=== PATIENT | female | born 1990 | race Two or more races ===

== ENCOUNTER 2024-04-11 03:35 | Observation (INO) | payer BC, MEDICAID, SELFPAY ==
[2024-04-11] VITALS (10 sets, daily range): BP systolic 107–114; BP diastolic 56–64; PULSE 72–83; RESP 17–99; TEMP 36.8; O2SAT 98–99; BMI 33.8
[2024-04-11 04:29] LABS: ROM Kit Lot # 57805053; ROM Swab Mixed By: CHULK; Rupture of Fetal Membranes Negative (Negative); Swb Mxed in Solvent 1 min? Yes
== END 2024-04-11 05:00 | disposition home or self-care (01) ==
PROVIDERS: Admitting Provider Obstetrics & Gynecology; PCP Family Medicine; Visit Provider Obstetrics & Gynecology
DX: O26.893 Other specified pregnancy related conditions, third trimester (principal); Z3A.31 31 weeks gestation of pregnancy; R10.31 Right lower quadrant pain
CPT/HCPCS: 59899; 84112

== ENCOUNTER 2024-06-02 14:11 | Observation (INO) | payer BC, MEDICAID, SELFPAY ==
[2024-06-02] VITALS (24 sets, daily range): BP systolic 83–91; BP diastolic 52–66; PULSE 65–79; RESP 16; TEMP 36.5; O2SAT 97–100; BMI 34.1
--- NOTE | 2024-06-02 15:13 | XR_ITS ---
Examination: Complete OB ultrasound greater than 14 weeks Date and time of exam: June 02, 2024 1525 hours INDICATIONS: Ruptured membranes, leaking amniotic fluid today, pelvic contractions Findings: Viable intrauterine single fetus with single amniotic sac presentation cephalic Cardiac motion 152 BPM Placenta fundal grade 3 no abruption Umbilical cord insertion seen Amniotic fluid index 7.9 cm spine maternal right Cervix 4.1 cm Ovaries obscured by bowel gas. Composite estimated gestational age based on BPD, head circumference, abdominal circumference, femur length is 38 weeks 2 days Estimated weight 3450 g. Survey of intracranial anatomy, spinal anatomy, abdominal anatomy, four-chamber heart performed with no abnormalities identified. Impression: Viable intrauterine gestation cephalic presentation Amniotic fluid index 7.9 cm Estimated weight 3450 g.
[2024-06-02 15:37] LABS: ROM Kit Lot # 57809118
[2024-06-02 15:38] LABS: ROM Swab Mixed By: WORMR; Rupture of Fetal Membranes Negative (Negative); Swb Mxed in Solvent 1 min? Yes
== END 2024-06-02 17:10 | disposition home or self-care (01) ==
PROVIDERS: Admitting Provider Specialist; Visit Provider Specialist
DX: Z34.83 Encounter for supervision of other normal pregnancy, third trimester (principal); Z3A.39 39 weeks gestation of pregnancy
CPT/HCPCS: 59899; 76805; 84112

== ENCOUNTER 2024-06-06 13:05 | Observation (INO) | payer BC, MEDICAID, SELFPAY ==
[2024-06-06] VITALS (7 sets, daily range): BP systolic 107; BP diastolic 58; PULSE 76–101; RESP 18; TEMP 37; O2SAT 98–100; BMI 34.2
--- NOTE | 2024-06-06 16:14 | PC.NURSE ---
Patient discharged home with spouse. NST reactive. Vitals WNL. Discharge education reviewed with patient including reasons to return and precautions. Patient verbalizes understand, all questions answered and encouraged.
== END 2024-06-06 16:06 | disposition home or self-care (01) ==
PROVIDERS: Admitting Provider Specialist; Visit Provider Specialist
DX: O47.1 False labor at or after 37 completed weeks of gestation (principal); Z3A.39 39 weeks gestation of pregnancy
CPT/HCPCS: 59025; 59899

== ENCOUNTER 2024-06-10 14:18 | Observation (INO) | payer BC, MEDICAID, SELFPAY ==
[2024-06-10 14:54] VITALS: BP 94/55; PULSE 99; RESP 17; RESP 99; TEMP 36.7; BMI 34.2
== END 2024-06-10 16:00 | disposition home or self-care (01) ==
PROVIDERS: Admitting Provider Specialist; Visit Provider Specialist
DX: Z34.83 Encounter for supervision of other normal pregnancy, third trimester (principal); Z3A.40 40 weeks gestation of pregnancy
CPT/HCPCS: 59899

== ENCOUNTER 2024-06-18 08:51 | Inpatient (IN) | payer BC, MEDICAID, SELFPAY ==
[2024-06-18] VITALS (179 sets, daily range): BP systolic 96–151; BP diastolic 51–82; PULSE 53–118; RESP 18–98; TEMP 36.6–37.1; O2SAT 81–100; BMI 34.0
[2024-06-18 09:39] LABS: ROM Kit Lot # 578010271
[2024-06-18 09:40] LABS: ROM Swab Mixed By: AYONJ; Rupture of Fetal Membranes Negative (Negative); Swb Mxed in Solvent 1 min? Yes
--- NOTE | 2024-06-18 10:59 | PD.LDHP ---
Documentation for date of: 06/18/24 OB Labor/Induct. HPI History of Present Illness History of Abortions: Spontaneous and Elective: 0 Comments: DATE OF ADMISSION: 06/18/2024 HISTORY OF PRESENT ILLNESS: This is a 34-year-old 4, para 3-0-0-3 with a due date of 06/09 with an intrauterine at 41 weeks 2 days who presents to labor delivery complaining of contractions and per RN in triage the patient is noted to be 3 cm. The patient reports that she thinks she is leaking fluid, but she is not sure. She denies any bleeding. She reports normal movements. Her care was complicated by a chlamydia cervicitis in the first trimester, which was treated. Subsequent test of cure for chlamydia was negative. She had a chlamydia and gonorrhea test on 05/16, which was negative. She was treated for yeast on 05/16 and her group B strep vaginal rectal swab was negative on 05/16. An ultrasound on 05/16 revealed estimated weight of 2634 g consistent with growth at the 22nd percentile. Her amniosure today is negative. ALLERGIES: NO KNOWN DRUG ALLERGIES. MEDICATIONS: multivitamin 1 p.o. daily. SOCIAL HISTORY: She is . She denies any alcohol, drug use or smoking. PAST MEDICAL HISTORY: Chlamydia cervicitis. Yeast vaginitis. Suspected endometriosis. 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 Pap smear shows low-grade squamous intraepithelial lesion. Iron deficiency anemia. FAMILY HISTORY: Mother hypertension. OBSTETRIC HISTORY: 2017, 40 week. Normal vaginal delivery 6 pounds 7 ounce female. No complications. 12/2019, 40 week. Normal vaginal delivery 7.3 ounce female. No complications. 07/2021, 40 week. Normal vaginal delivery 8 pound 5 ounce male. No complications. PAST SURGICAL HISTORY: Colonoscopy 09/29/2023. REVIEW OF SYSTEMS: She denies any chest pain, palpitations, cough, fever, shortness of breath, or lower extremity pain. She denies any headache, change in vision or right upper quadrant pain. PHYSICAL EXAMINATION: VITAL SIGNS: Blood pressure is 122/80, heart rate 88, respirations 18, temperature 98.2. HEENT: Oropharynx and sclerae are clear. LUNGS: Clear to auscultation bilaterally. HEART: Regular rate and rhythm. ABDOMEN: Gravid consistent with estimated weight, 8.0 pounds. PELVIC: See RN notes. Avendano score 10. EXTREMITIES: Nontender. SKIN: No gross rashes or lesions. NEUROLOGIC: No focal deficits. ASSESSMENT AND PLAN: Intrauterine at 41w2d. Induction of Labor with Pitocin. Anticipate spontaneous vaginal delivery. Informed consent was obtained. The patient made aware of the risks, complications, alternatives, and benefits of operative vaginal delivery and delivery and agrees with these modes of delivery if indicated. Meds Home Medications and Allergies Home Medications ?Medication ?Instructions ?Recorded ?Confirmed ?Type No Known Home Medications 04/11/24 06/02/24 History Allergies Allergy/AdvReac Type Severity Reaction Status Date / Time No Known Allergies Allergy Unknown Verified 06/02/24 15:26 OB Exam Physical Exam Vital signs: Temp Pulse Resp BP 97.8 F 68 18 96/51 L 06/18/24 08:51 06/18/24 10:48 06/18/24 08:51 06/18/24 10:48
[2024-06-18] MEDS: hydrOXYzine HCL 25 MG TABLET 50 MG PO (11:31)
[2024-06-18] MEDS: RINGERS LACTATED 1000 ML 1,000 ML 999 ML IV (12:20)
[2024-06-18] MEDS: RINGERS LACTATED 1000 ML 1,000 ML 100 ML IV (13:03)
[2024-06-18 13:04] LABS: Basophils % (Auto) 0 % (0-2.5); Eosinophils % (Auto) 0 % (0-10); Hematocrit 39.8 % (36.0-46.0); Hemoglobin 13.7 g/dL (12.0-16.0); Immature Granulocytes % (Auto) 1 % (0-0); Lymphocytes # (Auto) 1.6 Thou/mm3 (1.0-4.8); Lymphocytes % (Auto) 18 % (10-50); Mean Corpuscular HGB Conc 34.4 g/dl (31.0-37.0); Mean Corpuscular Hemoglobin 30.9 pg (25.0-35.0); Mean Corpuscular Volume 90 fL (80-100); Monocytes # (Auto) 0.4 Thou/mm3 (0.0-0.8); Monocytes % (Auto) 5 % (0-12); Neutrophils # (Auto) 6.8 Thou/mm3 (1.8-7.7); Neutrophils % (Auto) 76 % (37-80); Nucleated Red Blood Cell % 0 /100 WBC (0); Platelet Count 150 Thou/mm3 (140-440); RDW Standard Deviation 46.6 fL (36.4-46.3); Red Blood Count 4.43 Miln/mm3 (4.00-5.20)
[2024-06-18 13:09] LABS: Amphetamine/Metham Scrn,Ur OB Negative (Negative); Benzoylecgonine Screen, Ur OB Negative (Negative); Opiate Screen,Urine OB Negative (Negative); THC Screen,Urine OB Negative (Negative)
[2024-06-18 13:33] LABS: Syphilis Nonreactive (Nonreactive)
[2024-06-18] MEDS: OXYTOCIN in NS 30 units 30 UNIT/500 ML BAG IV (16:50)
[2024-06-18] MEDS: OXYTOCIN in NS 20 units 20 UNIT/1,000 ML BAG 125 UNIT IV (21:15)
--- NOTE | 2024-06-18 22:00 | PD.LDDELS ---
Data ([facility]) Data Hx Section: No : 4 Para: 3 Term: 3 : 0 : 0 Delivery Data ([facility]) Labor Data Induction: Yes ROM Date: 06/18/24 ROM Time: 20:50 Rupture Type: SROM Amniotic Fluid: Clear Delivery Data EDC: 06/09/24 EDC calculated by:: LMP/early US confirmation Labor Onset Stage 1 Date: 06/18/24 Labor Onset Stage 1 Time: 14:28 Labor Onset Stage 2 Date: 06/18/24 Labor Onset Stage 2 Time: 20:55 Delivery Date: 06/18/24 Delivery Time: 21:06 Gestational age (weeks): 41 Gestational age (days): 2 Placenta Delivery Date: 06/18/24 Placenta Delivery Time: 21:15 Delivered by: Baron Cabrera Delivery nurse: Amaris Parks Other staff at delivery: Nurse Other staff at delivery: Nursery Nurse Other staff at delivery: Other staff at delivery: Kathia Hurtado Other staff at delivery: Vanessa Barron Other staff at delivery: hermleindo lance Other staff at delivery: vy payne Delivery Method Delivery: Vaginal Delivery Type: Spontaneous Presentation: Vertex Position: OA Anesthesia Type Primary Anesthesia: Epidural Secondary Anesthesia: Epidural Placenta Placenta Delivery: Spontaneous Placenta Cultures Obtained: No Placenta Sent for Examination: No Cord Sample: Cord Blood Obtained Lacerations #1: Perineal: 2nd degree Perineal repair Sutures used for repair: 3.0 Chromic EBL Estimated blood loss (ml): 200 Umbilical Cord Nuchal Cord: x1 Body Cord: None Additional Procedures None Complications Complications: None Data ([facility]) [place] Data Gender: Male Infant Weight Grams: 3660 1 Minute Total: 8 5 Minute Total: 9
[2024-06-18] MEDS: BENZO/LANO/ALOE (Dermoplast) 60 GM CAN 1 SPRAY TOP (22:45)
[2024-06-18] MEDS: IBUPROFEN TAB 400 MG TABLET 800 MG PO (23:48)
[2024-06-19 04:00] VITALS: BP 101/64; PULSE 66; RESP 17; TEMP 36.9; O2SAT 97
[2024-06-19] MEDS: ACETAMINOPHEN 325 MG TABLET 650 MG PO ×2 (05:06→19:08)
[2024-06-19 06:16] LABS: Basophils % (Auto) 0 % (0-2.5); Eosinophils % (Auto) 0 % (0-10); Hematocrit 31.5 % (36.0-46.0); Hemoglobin 10.8 g/dL (12.0-16.0); Immature Granulocytes % (Auto) 1 % (0-0); Immature Granulocytes Auto 0.09 Thou/mm3 (0.00-0.00); Lymphocytes # (Auto) 2.6 Thou/mm3 (1.0-4.8); Lymphocytes % (Auto) 23 % (10-50); Mean Corpuscular HGB Conc 34.3 g/dl (31.0-37.0); Mean Corpuscular Hemoglobin 31.4 pg (25.0-35.0); Mean Corpuscular Volume 92 fL (80-100); Monocytes # (Auto) 0.7 Thou/mm3 (0.0-0.8); Monocytes % (Auto) 6 % (0-12); Neutrophils # (Auto) 7.8 Thou/mm3 (1.8-7.7); Neutrophils % (Auto) 70 % (37-80); Nucleated Red Blood Cell % 0 /100 WBC (0); Platelet Count 120 Thou/mm3 (140-440); RDW Standard Deviation 47.8 fL (36.4-46.3); Red Blood Count 3.44 Miln/mm3 (4.00-5.20); White Blood Count 11.2 Thou/mm3 (3.6-11.0)
[2024-06-19 08:12] VITALS: BP 100/67; PULSE 60; RESP 18; TEMP 36.5; O2SAT 97
--- NOTE | 2024-06-19 08:24 | ESDS_ITS ---
DS: Providers Provider Date of admission: 06/18/24 10:57 Primary care physician: Physician No Primary/Family Admitting Provider: Baron Cabrera MD Attending Provider on Admission: Baron Cabrera MD Consults: 06/18/24 22:52 Referral Routine Comment: Attending Provider on DC: Baron Cabrera MD Discharging Provider: Baron Cabrera MD DS: Diagnosis Problem List Completed Was Problem List Reviewed/Reconciled?: Yes Summary/Hosp Course Time Spent with Patient Time attestation: Total time spent providing and/or coordinating discharge services: Exam Vital Signs Temp Pulse Resp BP Pulse Ox O2 Del Method 98.5 F 66 17 101/64 97 Room Air 06/19/24 04:00 06/19/24 04:00 06/19/24 04:00 06/19/24 04:00 06/19/24 04:00 06/19/24 04:00 Discharge Plan Plan Patient Disposition: HOME (Self Care) Patient condition on transfer: Stable Prescriptions/Referrals Prescriptions/Med Rec: New ibuprofen 600 mg tablet 600 mg PO Q6H PRN (Reason: pain) Qty: 30 0RF Continued ferrous sulfate 325 mg (65 mg iron) tablet,delayed release (DR/EC) 325 mg PO QDAY Patient Comments: TAKE 1 TABLET BY MOUTH EVERY OTHER DAY FOR 60 DAYS Classic 28 mg iron- 800 mcg tablet 1 tab PO QDAY Discontinued metronidazole 500 mg tablet 500 mg PO BID Patient Comments: TAKE 1 TABLET BY MOUTH TWICE A DAY DO NOT DRINK ALCOHOL WHILE ON THIS MEDICATION Referrals: No Primary/Family,Physician [Primary Care Provider] - Patient/Caregiver Discharge Instructions Discharge Activity: activity as tolerated Other Discharge Activity Instructions:: Follow up office 6 weeks. Education Materials: After a Vaginal , Breast Care After , : Caring for Yourself Print Language: Serbian Stand Alone Forms: Kate Award Info., Patient Portal Info Letter Discharge Order Discharge Orders: Discharge (Routine); Ordered 06/19/24 Ordered By: Baron Cabrera Planned Discharge Date 06/20/24
--- NOTE | 2024-06-19 10:05 | ESPR_ITS ---
RE: LUCIE CASTELLANOS : 1990 DATE OF SERVICE: 06/19/2024 SUBJECTIVE: day #1, the patient denies any problem or complaint. She is voiding. She is ambulating. She is tolerating diet. She is passing flatus. She denies any excessive vaginal bleeding. She denies any dizziness or lightheadedness. She denies any chest pain, palpitations, shortness of breath or lower extremity pain. She denies any depression or anxiety. OBJECTIVE: Vital Signs: Blood pressure 101/64, heart rate 66, respirations 17, temperature is 98.5, pulse oximetry is 97% on room air. Lungs: Clear to auscultation bilaterally. Heart: Regular rate and rhythm. Abdomen: Fundus is firm, nontender. Extremities: Nontender. LABORATORY DATA: Hemoglobin pre-delivery is 13.7, post delivery is 10.8. ASSESSMENT: 1. day #1 status post spontaneous vaginal delivery. 2. Anemia, but hemodynamically stable. PLAN: Discharge home when baby is cleared. Discharge instructions given. Follow up in the office in 6 weeks. DT: 08:18:10 TT: 10:03:00 Ref: [id number] - TID: [id number]
[2024-06-19 12:41] VITALS: BP 107/65; PULSE 74; RESP 20; TEMP 36.7; O2SAT 97
[2024-06-19] MEDS: IBUPROFEN TAB 400 MG TABLET 800 MG PO (12:49)
[2024-06-19 17:00] VITALS: BP 106/71; PULSE 66; RESP 16; TEMP 36.4; O2SAT 99
--- NOTE | 2024-06-19 19:05 | PC.NURSE ---
RN RECEIVED IN REPORT PATIENT WAS LATE TO CARE AT 26 WEEKS RN REVIEWED PATIENTS CHART AND SEEN SHE WAS A TRANSFER OF CARE AT 26 WEEKS PATIENT WAS SEEN IN FIRST TRIMESTER ( 7 weeks ) per patient report and documentation. no need for social service referral clearance upon discharge this evening
[2024-06-19 20:15] VITALS: BP 110/70; PULSE 69; RESP 18; TEMP 36.5; O2SAT 97
== END 2024-06-19 22:50 | disposition home or self-care (01) | DRG 807 ==
LOC: S4SX 11:25 → S4NX 06-19 00:21
PROVIDERS: Admitting Provider Specialist; Visit Provider Specialist
DX: O48.0 Post-term pregnancy (principal); Z37.0 Single live birth; Z3A.41 41 weeks gestation of pregnancy; O70.1 Second degree perineal laceration during delivery; O69.81X0 Labor and delivery complicated by cord around neck, without compression, not applicable or unspecified; O90.81 Anemia of the puerperium; D64.9 Anemia, unspecified
CPT/HCPCS: 36415; 59025; 80307; 84112; 85025; 86780; 86850; 86900; 86901; J2590; J2795; J3010; J7120; A9270

== ENCOUNTER → 2024-06-29 | Outpatient (BNVA) | payer BC, MEDICAID, SELFPAY | END | disposition home or self-care (01) | PROVIDERS: PCP Nurse Practitioner Primary Care; Referring Provider Nurse Practitioner Primary Care; Visit Provider Nurse Practitioner Primary Care | DX: J30.89 Other allergic rhinitis (principal); B37.9 Candidiasis, unspecified | CPT/HCPCS: 87804; 99213 ==

== ENCOUNTER → 2024-07-18 | Outpatient (BNVA) | payer BC, MEDICAID, SELFPAY | END | disposition home or self-care (01) | PROVIDERS: PCP Nurse Practitioner Family; Referring Provider Nurse Practitioner Family; Visit Provider Nurse Practitioner Family | DX: Z00.01 Encounter for general adult medical examination with abnormal findings (principal); Z11.3 Encounter for screening for infections with a predominantly sexual mode of transmission; E55.9 Vitamin D deficiency, unspecified; Z13.220 Encounter for screening for lipoid disorders; Z13.1 Encounter for screening for diabetes mellitus; Z71.85 Encounter for immunization safety counseling; E66.9 Obesity, unspecified; Z68.39 Body mass index [BMI] 39.0-39.9, adult | CPT/HCPCS: 99215 ==

== ENCOUNTER → 2024-07-27 | Outpatient (BNVA) | payer BC, MEDICAID, SELFPAY | END | disposition home or self-care (01) | PROVIDERS: PCP Nurse Practitioner Family; Referring Provider Nurse Practitioner Family; Visit Provider Nurse Practitioner Family | DX: Z71.2 Person consulting for explanation of examination or test findings (principal); E55.9 Vitamin D deficiency, unspecified; E78.5 Hyperlipidemia, unspecified | CPT/HCPCS: 99213 ==

== ENCOUNTER → 2025-01-18 | Outpatient (BNVA) | payer BC, MEDICAID, SELFPAY | END | disposition home or self-care (01) | PROVIDERS: PCP Nurse Practitioner Family; Referring Provider Nurse Practitioner Family; Visit Provider Nurse Practitioner Family | DX: R51.9 Headache, unspecified (principal); F41.9 Anxiety disorder, unspecified; F32.A Depression, unspecified; M54.6 Pain in thoracic spine; Z23 Encounter for immunization | CPT/HCPCS: 90471; 90686; 99213 ==

== ENCOUNTER → 2025-02-03 | Outpatient (BNVA) | payer BC, MEDICAID, SELFPAY | END | disposition home or self-care (01) | PROVIDERS: PCP Nurse Practitioner Primary Care; Referring Provider Nurse Practitioner Primary Care; Visit Provider Nurse Practitioner Primary Care | DX: F41.9 Anxiety disorder, unspecified (principal); F33.1 Major depressive disorder, recurrent, moderate | CPT/HCPCS: 90715; 99213 ==

== ENCOUNTER → 2025-03-03 | Outpatient (BNVA) | payer BC, MEDICAID, SELFPAY | END | disposition home or self-care (01) | PROVIDERS: PCP Nurse Practitioner Primary Care; Referring Provider Nurse Practitioner Primary Care; Visit Provider Nurse Practitioner Primary Care | DX: F41.9 Anxiety disorder, unspecified (principal); F33.1 Major depressive disorder, recurrent, moderate | CPT/HCPCS: 99213 ==